=== PATIENT | male | born 1940 | race Two or more races ===

== ENCOUNTER 2016-07-26 10:28 | Inpatient (IN) | payer MEDICARE ==
[2016-07-26] MEDS ORDERED: ASPIRIN 81 MG CHEW PO STA (10:35)
[2016-07-26] MEDS ORDERED: HEPARIN SODIUM,PORCINE 5,000 UNIT/ML 1 ML VIAL IV STA (10:35)
[2016-07-26] MEDS ORDERED: NITROGLYCERIN SL TABS 0.4 MG TAB SUBLINGUAL STA (10:35)
--- NOTE | 2016-07-26 10:40 | ED ---
General Adult HPI - General Stated complaint: stemi Time Seen by Provider: 07/26/16 10:31 Source: patient, EMS, RN notes reviewed Mode of arrival: EMS Limitations: no limitations - History of Present Illness Initial comments: Patient is a pleasant 75-year-old male presenting to the emergency Department with chest discomfort. Onset was around an hour and a half ago. Patient has discomfort with radiation to his arms. Discomfort feels like pressure. Discomfort is 7/10. Patient did have mild improvement with nitroglycerin. Patient feels somewhat sweaty. No dyspnea. No nausea. No history of similar symptoms previously. Patient did have an TX 7 or 8 years ago followed by CABG. Patient was recently in the hospital for bronchitis. - Related Data Allergies Allergy/AdvReac Type Severity Reaction Status Date / Time No Known Allergies Allergy Verified 07/26/16 10:53 Review of Systems ROS Statement: Those systems with pertinent positive or pertinent negative responses have been documented in the HPI. ROS Other: All systems not noted in ROS Statement are negative. Constitutional: Denies: fever Eyes: Denies: eye pain ENT: Denies: ear pain Respiratory: Denies: cough, dyspnea Cardiovascular: Reports: chest pain Endocrine: Denies: fatigue Gastrointestinal: Denies: nausea Genitourinary: Denies: dysuria Musculoskeletal: Denies: back pain Skin: Denies: rash Neurological: Denies: weakness Past Medical History Past Medical History: Coronary Artery Disease (CAD), Hyperlipidemia, Hypertension Past Surgical History: Coronary Bypass/CABG Smoking Status: Never smoker Past Alcohol Use History: Occasional Past Drug Use History: None Reported General Exam Limitations: no limitations General appearance: alert, other (Patient appears mildly uncomfortable) Head exam: Present: atraumatic, normocephalic Eye exam: Present: normal appearance, PERRL ENT exam: Present: normal oropharynx Neck exam: Present: normal inspection Respiratory exam: Present: normal lung sounds bilaterally. Absent: chest wall tenderness Cardiovascular Exam: Present: regular rate, normal rhythm Expanded Peripheral pulses: 2+: Radial (R), Radial (L), Dorsalis Pedis (R), Dorsalis Pedis (L) GI/Abdominal exam: Present: soft. Absent: tenderness Extremities exam: Present: normal inspection. Absent: pedal edema, calf tenderness Neurological exam: Present: alert Psychiatric exam: Present: normal affect, normal mood Skin exam: Absent: rash Course Vital Signs 07/26/16 07/26/16 07/26/16 10:29 10:33 10:35 Temperature 97.8 F Pulse Rate 74 76 74 Respiratory 18 Rate Blood Pressure 151/71 152/73 155/70 O2 Sat by Pulse 96 Oximetry 07/26/16 10:40 Temperature Pulse Rate 76 Respiratory 18 Rate Blood Pressure 146/91 O2 Sat by Pulse 98 Oximetry - Reevaluation(s) Reevaluation #1: 07/26/16 10:38 After [place] was notified prior to patient arrival secondary to EKG on EMS transmission. He did show up minutes after patient arrival and is currently evaluating patient and will take him to the [facility]. 07/26/16 10:41 Right-sided EKG shows no ST elevation in lead V4. Normal sinus rhythm at 74. OR 192. QRS 92. QT 394. QTC 437. Normal axis. Normal QRS. Inferior ST elevation. ST depression leads V1 and V2. 07/26/16 10:45 Patient has gone to [facility]. 07/26/16 10:47 Dr. Yates has been paged for admission. 07/26/16 10:56 07/26/16 11:13 Case was discussed with Dr. Yates, who will admit for hospital call. EKG Findings - EKG Comments: EKG Findings:: EKG shows normal sinus rhythm at 75. Normal intervals. Normal axis. Normal QRS. Significant ST elevation inferior and lateral leads. There is some ST depression in the septal leads. Medical Decision Making - Lab Data Result diagrams: 07/26/16 10:41 Lab Results 07/26/16 Range/Units 10:41 WBC 14.2 H (3.8-10.6) k/uL RBC 4.27 L (4.30-5.90) m/uL Hgb 13.6 (13.0-17.5) gm/dL Hct 42.3 (39.0-53.0) % MCV 99.1 (80.0-100.0) fL MCH 31.8 (25.0-35.0) pg MCHC 32.1 (31.0-37.0) g/dL RDW 13.2 (11.5-15.5) % Plt Count 254 (150-450) k/uL Neutrophils % 71 % Lymphocytes % 20 % Monocytes % 7 % Eosinophils % 1 % Basophils % 0 % Neutrophils # 10.1 H (1.3-7.7) k/uL Lymphocytes # 2.9 (1.0-4.8) k/uL Monocytes # 1.0 (0-1.0) k/uL Eosinophils # 0.1 (0-0.7) k/uL Basophils # 0.0 (0-0.2) k/uL - Radiology Data Interpreted by me: Chest x-ray shows borderline cardiomegaly. There is sternotomy wires and postsurgical changes. Mild interstitial prominence. Disposition Clinical Impression: STEMI (ST elevation myocardial infarction) Disposition: ADMITTED IP TO THIS HOSP Condition: Critical Referrals: None,Stated [Primary Care Provider] - 1-2 days
[2016-07-26] MEDS ORDERED: SODIUM CHLORIDE 0.9% 1,000 ML IV ONE (10:45)
[2016-07-26] MEDS ORDERED: LIDOCAINE 2% INJ 20 MG/ML (20 ML MDV) ONE (10:51)
--- NOTE | 2016-07-26 10:52 | XR ---
EXAMINATION TYPE: XR chest 1V portable DATE OF EXAM: 07/26/2016 10:45 AM COMPARISON: NONE HISTORY: Chest pain TECHNIQUE: Single frontal view of the chest is obtained. FINDINGS: Patient is post median sternotomy and slightly rotated, there are overlying cardiac leads. The heart is enlarged. There is no evident pneumothorax. Difficult to exclude basilar density. Pulmo nary vascularity and enriqueta within normal limits. IMPRESSION: There may be some basilar atelectasis, difficult to exclude a small effusion or airspace disease, follow-up as indicated. Cardiomegaly. Postop changes.
[2016-07-26 10:57] LABS: Basophils % (A) 0 %; CH 31.9; CHCM 32.3; Eosinophils # (A) 0.1 k/uL (0-0.7); Eosinophils % (A) 1 %; HCT 42.3 % (39.0-53.0); HDW 2.37; HGB 13.6 gm/dL (13.0-17.5); Luc # (Auto) 0.14; Luc % (Auto) 1; Lymphocytes # (A) 2.9 k/uL (1.0-4.8); Lymphocytes % (A) 20 %; MCH 31.8 pg (25.0-35.0); MCHC 32.1 g/dL (31.0-37.0); MCV 99.1 fL (80.0-100.0); Mean Platelet Volume 6.9; Monocytes % (A) 7 %; Neutrophils # (A) 10.1 k/uL (1.3-7.7); Neutrophils % (A) 71 %; RBC 4.27 m/uL (4.30-5.90); RDW 13.2 % (11.5-15.5); WBC 14.2 k/uL (3.8-10.6); WBC (Perox) 14.86
[2016-07-26] MEDS: MIDAZOLAM 2 MG/2 ML VIAL IV ONE ×2 (10:57→11:00)
[2016-07-26] MEDS ORDERED: MIDAZOLAM 2 MG/2 ML VIAL ONE (10:58)
[2016-07-26] MEDS ORDERED: diphenhydrAMINE 50 MG/ML 1 ML VIAL ONE (10:58)
[2016-07-26] MEDS ORDERED: LIDOCAINE 2% INJ 20 MG/ML SQ ONE (10:58)
[2016-07-26] MEDS ORDERED: diphenhydrAMINE 50 MG/ML 1 ML VIAL IVP ONE (10:58)
[2016-07-26] MEDS: HYDROmorphone 2 MG/ML 1 ML SYRINGE IV ONE ×2 (10:59→11:36)
[2016-07-26] MEDS ORDERED: SODIUM CHLORIDE 0.9% 500 ML IV ONE (11:00)
[2016-07-26] MEDS ORDERED: HYDROmorphone 2 MG/ML 1 ML SYRINGE ONE (11:02)
[2016-07-26] MEDS ORDERED: ATORVASTATIN 80 MG TAB PO STA (11:06)
[2016-07-26] MEDS: NITROGLYCERIN SL TABS 0.4 MG TAB SUBLINGUAL STA ×3 (11:08→11:09)
[2016-07-26 11:10] LABS: Anion Gap 12 mmol/L; Calcium 8.9 mg/dL (8.4-10.2); Carbon Dioxide 23 mmol/L (22-30); Chloride 103 mmol/L (98-107); Glucose 119 mg/dL (74-99); Non-African American GFR(MDRD) >60 (>60 ml/min/1.73 sqM); Sodium 138 mmol/L (137-145); Total Bilirubin 0.8 mg/dL (0.2-1.3); Total Protein 6.5 g/dL (6.3-8.2)
[2016-07-26 11:14] LABS: ALT 41 U/L (21-72); AST 37 U/L (17-59); Alkaline Phosphatase 76 U/L (38-126); Blood Urea Nitrogen 26 mg/dL (9-20)
[2016-07-26] MEDS ORDERED: BIVALIRUDIN BOLUS 250 MG/50 ML IV ONE (11:15)
[2016-07-26] MEDS ORDERED: BIVALIRUDIN 250 MG in SODIUM CHLORIDE 0.9% 50 ML IV ONE (11:16)
[2016-07-26] MEDS ORDERED: CLOPIDOGREL 75 MG TAB ONE ×2 (11:18)
[2016-07-26] MEDS ORDERED: CLOPIDOGREL 75 MG TAB PO ONE (11:22)
[2016-07-26] MEDS ORDERED: NITROGLYCERIN 1000MCG/10ML SYRINGE INTRACORON ONE (11:23)
[2016-07-26 11:35] LABS: Partial Thromboplastin Time 26.9 sec (22.0-30.0); Prothrombin Time 10.1 sec (9.0-12.0)
[2016-07-26] MEDS ORDERED: IOHEXOL 350 MG/ML 100 ML BOTTLE INJ ONE (11:36)
[2016-07-26 11:40] LABS: Creatine Kinase MB 5.2 ng/mL (0.0-2.4); Troponin I 0.082 ng/mL (0.000-0.034)
[2016-07-26] MEDS ORDERED: RX INFO: IV CONTRAST WAS GIVEN 1 EACH MISC MISCELLANE PRN (11:47)
[2016-07-26] MEDS ORDERED: ATROPINE SULFATE 0.1 MG/ML 10ML SYRINGE IV PRN (11:47)
[2016-07-26] MEDS ORDERED: MAG HYDROX/AL HYDROX/SIMETH 30 ML CUP PO PRN (11:47)
[2016-07-26] MEDS ORDERED: NITROGLYCERIN SL TABS 0.4 MG TAB SUBLINGUAL PRN (11:47)
[2016-07-26] MEDS ORDERED: ZOLPIDEM 5 MG TAB PO PRN (11:47)
[2016-07-26] MEDS ORDERED: SODIUM CHLORIDE 0.9% 1,000 ML IV SCH (12:00)
[2016-07-26 12:39] LABS: Glucose,Whole Blood 124 mg/dL (75-99)
[2016-07-26] MEDS: FUROSEMIDE 10 MG/ML 4 ML VIAL IV SCH ×2 (14:28→21:44)
--- NOTE | 2016-07-26 15:00 | ECHOF ---
Referral Reason:stemi MEASUREMENTS -------- HEIGHT: 177.8 cm WEIGHT: 79.4 kg BP: 146/91 RVIDd: 3.2 cm (< 3.3) IVSd: 1.4 cm (0.6 - 1.1) LVIDd: 3.5 cm (3.9 - 5.3) LVPWd: 1.4 cm (0.6 - 1.1) IVSs: 1.9 cm LVIDs: 2.7 cm LVPWs: 1.8 cm LA Diam: 3.5 cm (2.7 - 3.8) LAESV Index (A-L): 21.07 ml/m Ao Diam: 3.7 cm (2.0 - 3.7) AV Cusp: 2.0 cm (1.5 - 2.6) MV EXCURSION: 8.503 mm (> 18.000) MV EF SLOPE: 72 mm/s (70 - 150) EPSS: 0.4 cm MV E Yt: 1.15 m/s MV DecT: 115 ms MV A Ty: 1.29 m/s MV E/A Ratio: 0.89 RAP: 5.00 mmHg RVSP: 25.42 mmHg FINDINGS -------- Sinus rhythm. This was a technically adequate study. The left ventricular size is normal. There is moderate concentric left ventricular hypertrophy. Overall left ventricular systolic function is low-normal with, an EF between 50 - 55 %. Basal inferior LV wall motion is hypokinetic. The right ventricle is normal in size. Normal LA size by volume 22+/-6 ml/m2. The right atrium is normal in size. There is mild aortic valve sclerosis. Mild mitral annular calcification present. There is trace to mild mitral regurgitation. Mild tricuspid regurgitation present. Right ventricular systolic pressure is normal at < 35 mmHg. The pulmonic valve was not well visualized. The aortic root is dilated measuring 3.7cm. There is no pericardial effusion. CONCLUSIONS -------- 1. Sinus rhythm. 2. There is mild aortic valve sclerosis. 3. Mild mitral annular calcification present. 4. There is trace to mild mitral regurgitation. 5. Mild tricuspid regurgitation present. 6. Right ventricular systolic pressure is normal at < 35 mmHg. 7. The pulmonic valve was not well visualized. 8. The aortic root is dilated measuring 3.7cm. 9. There is no pericardial effusion. 10. This was a technically adequate study. 11. The left ventricular size is normal. 12. There is moderate concentric left ventricular hypertrophy. 13. Overall left ventricular systolic function is low-normal with, an EF between 50 - 55 %. 14. Basal inferior LV wall motion is hypokinetic. 15. The right ventricle is normal in size. 16. Normal LA size by volume 22+/-6 ml/m2. 17. The right atrium is normal in size. [employer] DEVELOPER: Maricruz Chang RDCS
[2016-07-26 15:37] VITALS: BMI 25.0
--- NOTE | 2016-07-26 19:40 | HP ---
DATE OF ADMISSION: 07/26/2016 REASON FOR ADMISSION: Chest pain. HISTORY OF PRESENT ILLNESS: This is a 75-year-old gentleman with a past medical history of CAD, status post CABG; thereafter underwent another PCI. This was all at another facility. Comes in the hospital with acute onset chest pain. Patient presented to the emergency room around half hour after the onset of symptoms, described as, pressure-like feeling, mid sternal region, severe. In the emergency room, EKG was done immediately which showed ST elevation, in 2, 3, aVF ST depression and concurrent leads in V3, V4, V5 And V6. Patient was also noted to have increased troponin. Patient was emergently taken to the cardiac catheterization suite with standard protocol. Patient underwent an emergent cath, was noted to have what appears to be a blockage of the graft. Patient underwent successful PTCA and PCI. Patient was seen postoperatively in the Intensive Care Unit. Appears to be in normal sinus rhythm. Denies having any chest pain. A stat echocardiogram showed basal hypokinesis. Past medical history includes: 1. CAD. 2. Essential hypertension. 3. Dyslipidemia. 4. Gastroesophageal reflux disease. PAST SURGICAL HISTORY: CABG and cardiac catheterization in the past. SOCIAL HISTORY: The patient is a lifelong nonsmoker. Denies alcohol or illicit drug use. FAMILY HISTORY: Does state to have some heart disease in the family. Home medications: None were reported. PHYSICAL EXAM: Vital signs include temperature 98.8, heart rate 79, respiratory rate 17, blood pressure is 127/71, saturating 98% on 4 liters of supplemental oxygen. GENERAL APPEARANCE: Alert, oriented x3 in no distress. HEAD: Atraumatic, normocephalic. Pupils are equal, round, and react to light and accommodation. Neck is supple. No JVD. HEART: S1, S2 heard, regular rate and rhythm. No murmurs appreciated. LUNGS: Does appear to have a cough. Rhonchi appreciated, however, transmitted from the hypopharynx. On clearing, patient appears to have good air movement. ABDOMEN: Soft, nontender, no organomegaly. LOWER EXTREMITIES: No significant edema noted. Right groin is examined. Appropriately tender to palpation. Distal pulses are appreciated. NEURO: No focal motor or sensory deficits noted. LABORATORY DATA: Hemoglobin is 13.6, hematocrit 14.2. Platelets of 254. Sodium 138, potassium 4, chloride 103, bicarb 23. BUN 26, creatinine 0.91, troponin 0.82. ASSESSMENT AND PLAN: 1. Non-ST elevation myocardial infarction. 2. Acute bronchitis. 3. History of coronary artery disease status post coronary artery bypass graft in the past. 4. Dyslipidemia. 5. Acute hypoxic respiratory failure secondary to bronchitis and a lifelong nonsmoker. PLAN: We will start the patient on doxycycline. Patient is on dual antiplatelet therapy with aspirin and Plavix. Lisinopril 10 mg and metoprolol 25 mg p.o. b.i.d. were appropriately started by the collection coordinator. Patient will be monitored in the ICU for at least 24 hours for any dysrhythmias. Thereafter will be managed according to standard protocol in the hospital for at least 48 hours or greater. We will repeat a chest x-ray. DVT prophylaxis. There is some concern for an elevated LVEDP. Hence patient was started on diuretics. Will follow the patient.
[2016-07-26] MEDS ORDERED: ACETAMINOPHEN TAB 500 MG TAB PO PRN (20:14)
--- NOTE | 2016-07-26 20:56 | CC ---
DATE OF SERVICE: July 26, 2016. Performing physician: Felipe Avila, [employer] spanish teacher. PROCEDURE PERFORMED: 1. Selective left and right coronary angiogram. 2. SVG angiogram x2. 3. Left internal mammary artery angiogram. 4. Successful stenting of the mid right coronary artery using 3.25 x 18 mm Xience JOAQUIM which was postdilated using 3.75 mm NC balloon with a good angiographic results. INDICATION: This is a pleasant 75-year-old gentleman who presented to the hospital with chest discomfort and was diagnosed with acute inferior ST elevation myocardial infarction. He underwent a heart catheterization and was found to have critical disease involving the mid RCA which is unprotected. He underwent successful stenting of the RCA. Approach: Right common femoral artery. COMPLICATIONS: None. Level of sedation: Moderate sedation. Length of sedation: 45 minutes. PROCEDURE DESCRIPTION: After obtaining an informed consent, the patient was brought to the cardiac director of cath lab. Right common femoral artery was cannulated using micropuncture technique. Micropuncture wire passed easily and then I placed a 6 [place] sheath in the right common femoral artery. Subsequently I did selective right and left coronary angiogram using JL4 and JR4 catheters. After that, I did SVG angiogram x2 where I did SVG to OM and SVG to diagonal using the JR4 catheter. Left internal mammary artery angiogram was performed using also JR4 catheter. After that, I did intervene on the RCA. Please see separate paragraph for that. SELECTIVE CORONARY ANGIOGRAM: 1. The left main is a large-caliber vessel is mild disease distally. It bifurcates into the left circumflex and left anterior descending artery. 2. The left circumflex is a large-caliber vessel and it is a nondominant vessel. The proximal circumflex appeared to have mild disease only. The mid left circumflex appeared to become a small to medium caliber vessel and appeared to have mild disease only. The left circumflex gives rise into the first obtuse marginal branch, which appeared to have severe disease in the proximal portion, which is protected by the BOSS. 3. Left anterior descending artery: The proximal LAD appeared to have mild disease only and gives rises into 2 small diagonal branches. The mid LAD appeared to have a lesion in the range of 70% to 80%. Competitive flow from the BOSS was seen in the mid LAD. 4. Right coronary artery is a large-caliber vessel and it is dominant vessel. The proximal RCA appeared to have mild disease only. The mid RCA appeared to have critical disease in the range of 90% to 95%. The RCA distally appeared to have mild disease only and bifurcates into PDA and PLV branches; both have mild to moderate diffuse disease only. CORONARY BYPASS ANGIOGRAM: 1. The SVG to diagonal is patent. 2. The SVG to OM is patent. 3. The LAD is patent. PCI of the RCA: Anticoagulation was initiated using Angiomax. Subsequently, I took JR4 guide and the RCA was engaged. A Whisper wire was used to wire the RCA. Subsequently, I did PTCA using 20 x 12 mm balloon. Then I deployed a 3.25 x 15 x 18 mm Xience JOAQUIM, where the stent was positioned under fluoroscopy guidance and deployed under 16 atmospheres for 20 seconds. I postdilated that stent using a 3.75 mm noncompliant balloon. The following angiogram showed good angiographic result without complication and without dissection. CONCLUSION: 1. Severe triple-vessel coronary artery disease and status post coronary artery bypass grafting. 2. Patent BOSS to LAD. 3. Patent SVG to what. 4. Patent SVG to obtuse marginal branch. 5. Critical disease involving the mid unprotected right coronary artery. 6. Successful stenting of the mid RCA using 3.25 mm Xience JOAQUIM with a good angiographic result. POSTPROCEDURE MANAGEMENT: 1. Dual antiplatelet therapy. 2. Coronary risk factor modifications. 3. Follow up with the patient.
--- NOTE | 2016-07-26 21:23 | XR ---
EXAMINATION TYPE: XR chest 1V portable DATE OF EXAM: 07/26/2016 8:42 PM COMPARISON: Prior chest x-ray 25 November 2016 HISTORY: Fever TECHNIQUE: Single frontal view of the chest is obtained. FINDINGS: Patient is rotated. Heart is enlarged, patient is post median sternotomy. There is bluntin g of the right costophrenic angle. No evident pneumothorax. Pulmonary vascularity and enriqueta within nor mal limits. IMPRESSION: Findings suggest the right pleural effusion and associated atelectasis. Cardiomegaly. Fo llow-up PA and lateral chest x-ray is recommended.
[2016-07-26] MEDS: DOXYCYCLINE 50 MG CAP PO SCH (21:44)
[2016-07-26] MEDS: METOPROLOL TARTRATE 25 MG TAB PO SCH (21:44)
[2016-07-26] MEDS: ATORVASTATIN 20 MG TAB PO SCH (21:44)
[2016-07-27 04:58] LABS: Basophils % (A) 0 %; CH 32.1; CHCM 33.4; Eosinophils % (A) 0 %; HCT 38.8 % (39.0-53.0); HDW 2.39; HGB 12.9 gm/dL (13.0-17.5); Luc # (Auto) 0.15; Luc % (Auto) 1; Lymphocytes % (A) 7 %; MCH 32.1 pg (25.0-35.0); MCHC 33.2 g/dL (31.0-37.0); MCV 96.4 fL (80.0-100.0); Mean Platelet Volume 6.6; Monocytes # (A) 0.7 k/uL (0-1.0); Monocytes % (A) 5 %; Neutrophils # (A) 12.3 k/uL (1.3-7.7); Neutrophils % (A) 87 %; RBC 4.02 m/uL (4.30-5.90); RDW 12.8 % (11.5-15.5); WBC 14.3 k/uL (3.8-10.6); WBC (Perox) 15.32
[2016-07-27 05:07] LABS: ALT 70 U/L (21-72); AST 286 U/L (17-59); Alkaline Phosphatase 65 U/L (38-126); Anion Gap 10 mmol/L; Blood Urea Nitrogen 24 mg/dL (9-20); Calcium 8.6 mg/dL (8.4-10.2); Carbon Dioxide 30 mmol/L (22-30); Chloride 98 mmol/L (98-107); Glucose 131 mg/dL (74-99); Non-African American GFR(MDRD) >60 (>60 ml/min/1.73 sqM); Potassium 4.2 mmol/L (3.5-5.1); Sodium 138 mmol/L (137-145); Total Bilirubin 0.9 mg/dL (0.2-1.3); Total Protein 5.8 g/dL (6.3-8.2)
[2016-07-27] MEDS: DOXYCYCLINE 50 MG CAP PO SCH ×2 (08:16→20:49)
[2016-07-27] MEDS: FUROSEMIDE 10 MG/ML 4 ML VIAL IV SCH (08:17)
[2016-07-27] MEDS: LISINOPRIL 10 MG TAB PO SCH (08:17)
[2016-07-27] MEDS: METOPROLOL TARTRATE 25 MG TAB PO SCH (08:17)
[2016-07-27] MEDS: ASPIRIN 325 MG TAB PO SCH (08:18)
--- NOTE | 2016-07-27 08:33 | XR ---
EXAMINATION TYPE: XR chest 1V portable DATE OF EXAM: 07/27/2016 6:03 AM COMPARISON: Prior chest x-ray dated 26 July 2016 HISTORY: Difficulty in breathing TECHNIQUE: Single frontal view of the chest is obtained. FINDINGS: There are overlying cardiac leads. Heart remains enlarged. No evident pneumothorax. There may be some improved aeration at the lung bases. Pulmonary vascularity and enriqueta are stable. Patient i s post median sternotomy. IMPRESSION: There may be improvement in some aeration at the lung bases. Right hemidiaphragm is elev ated. Follow-up PA and lateral chest x-ray when stable.
[2016-07-27] MEDS: CLOPIDOGREL 75 MG TAB PO SCH (11:35)
[2016-07-27 12:03] LABS: Glucose,Whole Blood 123 mg/dL (75-99)
--- NOTE | 2016-07-27 12:14 | P.CRDCN ---
History of Present Illness Chief complaint: st elevation mi History of present illness: Impression 75-year-old male patient presenting with chest discomfort started about 1 after 2 hours prior to admission. The chest discomfort radiates down his left arm no radiation through to the back, severity 7 out of 10 mild improvement with nitroglycerin Past history of coronary artery disease triple-vessel followed by coronary artery bypass grafting old [place] Blood pressure 150s systolic, heart rate in the 70s, systolic murmur at the apex breath sounds reduced bilaterally no rhonchi no crackles no acute respiratory distress Recently diagnosed with bronchitis at [facility] and discharged On atorvastatin and aspirin Does not have a local health workers Medications reviewed ALLERGIES reviewed Review of systems: No fever chills or rigors, he complains of cough and expectoration, no nausea, vomiting or diarrhea, no hematuria, dysuria, no musculoskeletal complaints, no strokes or seizures, no skin lesions. On examination his blood pressure was in the 150s systolic Breath sounds are reduced bilaterally Heart sounds are soft no murmurs no gallops Extremities warm no edema No JVD Skin felt warm Impression Acute inferior wall UT with posterior extension Known coronary artery disease Recently diagnosed with bronchitis Plan IV heparin 80 mg of atorvastatin Aspirin Proceed to the Program Coordinator Executive Education Discussed with Dr. Solomon and Intervention as appropriate, medical management Past Medical History Past Medical History: Coronary Artery Disease (CAD), Hyperlipidemia, Hypertension Past Surgical History: Coronary Bypass/CABG Smoking Status: Never smoker Past Alcohol Use History: Occasional Past Drug Use History: None Reported - Past Family History Father Additional Family Medical History / Comment(s): Concussion Mother Family Medical History: Myocardial Infarction ([place]) Medications and Allergies Home Medications Medication Instructions Recorded Confirmed Type No Known Home Medications [No 07/26/16 07/26/16 History Known Home Medications] Allergies Allergy/AdvReac Type Severity Reaction Status Date / Time No Known Allergies Allergy Verified 07/26/16 14:26 Results 07/27/16 04:21 07/27/16 04:21
--- NOTE | 2016-07-27 12:16 | P.PN ---
Subjective Patient is stable but he seems to be coughing a lot more and his lungs definitely sound more rhonchorous than when I saw him in the emergency room. He denies any chest discomfort. His blood pressures in the mid 90s. No chest discomfort dizziness or lightheadedness On examination his blood pressure is 94/57 mmHg respirations 20 pulse rate 80 afebrile 98F Breath sounds are reduced bilaterally with bilateral rhonchi Heart sounds soft no murmurs no gallops Abdomen is soft nontender No lower extremity edema Impression Acute inferior posterior MT status post stenting Known coronary artery disease status post coronary artery bypass grafting Plan Treatment of bronchitis Continue antiplatelet agents statins and beta blockers Lower the dose of beta blockers Hold MAHNAZ inhibitor Objective - Vital Signs Vital signs: Vital Signs Temp 98.0 F 07/27/16 11:00 Pulse 80 07/27/16 12:00 Resp 25 H 07/27/16 12:00 BP 94/57 07/27/16 12:00 Pulse Ox 96 07/27/16 12:00 Intake & Output 07/26/16 07/27/16 07/27/16 18:59 06:59 18:59 Intake Total 700 495 100 Output Total 2300 2625 300 Balance -1600 -2130 -200 Weight 79.3 kg 73.1 kg Intake: IV 200 Intake, IV Titration 500 200 100 Amount Sodium Chloride 0.9% 1, 500 200 100 000 ml @ 100 mls/hr IV . Q10H PETRA Rx#:[id number] Oral 295 Output: Urine 2300 2625 300 Other: Voiding Method Urinal Urinal Urinal # Voids 0 # Bowel Movements 0 - Labs CBC & Chem 7: 07/27/16 04:21 07/27/16 04:21 Labs: Abnormal Lab Results - Last 24 Hours (Table) 07/26/16 07/27/16 07/27/16 Range/Units 12:38 04:21 04:21 WBC 14.3 H (3.8-10.6) k/uL RBC 4.02 L (4.30-5.90) m/uL Hgb 12.9 L (13.0-17.5) gm/dL Hct 38.8 L (39.0-53.0) % Neutrophils # 12.3 H (1.3-7.7) k/uL BUN 24 H (9-20) mg/dL Glucose 131 H (74-99) mg/dL POC Glucose (mg/dL) 124 H (75-99) mg/dL AST 286 H (17-59) U/L Total Protein 5.8 L (6.3-8.2) g/dL Albumin 3.1 L (3.5-5.0) g/dL 07/27/16 Range/Units 12:02 WBC (3.8-10.6) k/uL RBC (4.30-5.90) m/uL Hgb (13.0-17.5) gm/dL Hct (39.0-53.0) % Neutrophils # (1.3-7.7) k/uL BUN (9-20) mg/dL Glucose (74-99) mg/dL POC Glucose (mg/dL) 123 H (75-99) mg/dL AST (17-59) U/L Total Protein (6.3-8.2) g/dL Albumin (3.5-5.0) g/dL
[2016-07-27] MEDS: HEPARIN SODIUM,PORCINE 5,000 UNIT/ML 1 ML VIAL SQ SCH (16:29)
[2016-07-27] MEDS ORDERED: IV VANCOMYCIN PER PHARMACY 1 EACH MISC MISCELLANE PRN (19:04)
--- NOTE | 2016-07-27 20:08 | PN ---
This is a 75-year-old gentleman that is admitted to the hospital with a STEMI, underwent a PCI to the RCA. Patient does have a history of CAD, status post CABG 7 years ago. Patient was also undergoing treatment for bronchitis previously. Today the patient was seen in the intensive care unit. No abnormalities were noted. He continues to be on 2 liters supplemental oxygen and states that his cough is improved. Chest x-ray this a.m. appears to show improved aeration; however, elevation of the right hemidiaphragm. Denies having any headaches, chest pain, difficulty in breathing, nausea, vomiting, diarrhea at this time. PHYSICAL EXAM: VITALS: Temperature is 98, heart rate 80, respiratory rate is 20 to 25, blood pressure 94/57, saturating 96% on 2 liters. GENERALLY: Patient appears to be alert, oriented x3. HEENT: The pupils are equal and reactive to light and accommodation. HEART: S1, S2 present. No murmur appreciated. LUNGS: Good air entry. No wheezing or rhonchi noted. ABDOMINAL EXAM: Soft, nontender, no organomegaly appreciated. GENITOURINARY: No Forrest in place. EXTREMITIES: Pulses can be palpated distally. Denies any tenderness on gross palpation. SKIN: On a gross skin exam does not appear to have any purpura or any skin rashes that were noted. NEUROLOGICALLY: Grossly cranial nerves 2-12 intact. No motor or sensory deficits noted. LABORATORY DATA: Hemoglobin is 12.9, hematocrit 30.8, white count of 14.3, platelets of 271. Sodium 138, potassium 4.2, chloride 98, bicarb 30, BUN is 24, creatinine of 1. ASSESSMENT AND PLAN: 1. ST elevation myocardial infarction. 2. Acute bronchitis. 3. Dyslipidemia. 4. History of hypertension. 5. Elevated right hemidiaphragm likely due to the previous bypass surgery. PLAN: Continue treatment per STEMI protocol, telemetry monitoring. Blood pressures are stable. Breathing appears to be improving. Continue close monitoring. Encourage ambulation. Titrate down O2. We will add DVT prophylaxis with subcu heparin 5000 units q.8 hours. Likely need another 24 to 48 hours in the hospital.
[2016-07-27] MEDS: VANCOMYCIN 1,250 MG in SODIUM CHLORIDE 0.9% 250 ML IVPB SCH (20:48)
[2016-07-27] MEDS: ATORVASTATIN 20 MG TAB PO SCH (20:49)
[2016-07-27] MEDS: METOPROLOL TARTRATE 12.5 MG TAB PO SCH (22:07)
[2016-07-28] MEDS: HEPARIN SODIUM,PORCINE 5,000 UNIT/ML 1 ML VIAL SQ SCH ×2 (07:04→08:31)
[2016-07-28] MEDS: ASPIRIN 325 MG TAB PO SCH (08:31)
[2016-07-28] MEDS: VANCOMYCIN 1,250 MG in SODIUM CHLORIDE 0.9% 250 ML IVPB SCH (08:31)
[2016-07-28] MEDS: CLOPIDOGREL 75 MG TAB PO SCH (08:31)
[2016-07-28] MEDS: DOXYCYCLINE 50 MG CAP PO SCH (08:31)
[2016-07-28] MEDS: LISINOPRIL 10 MG TAB PO SCH (08:32)
[2016-07-28] MEDS: METOPROLOL TARTRATE 12.5 MG TAB PO SCH (08:32)
[2016-07-28 10:00] VITALS: RESP 18
[2016-07-28 12:35] VITALS: BP 114/72; PULSE 78; TEMP 97.4
--- NOTE | 2016-07-28 15:13 | P.PN ---
Progress Note - Text Patient signed out AGAINST MEDICAL ADVICE today, he was not seen or evaluated by cardiology today. 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 DNP note has been reviewed, I agree with a documented findings and plan of care. Patient was seen and examined.
--- NOTE | 2016-07-28 17:26 | P.DS ---
Providers Date of admission: 07/26/16 10:46 Attending physician: Tracy Yates Consults: 07/26/16 11:47 Consult Physician Routine Consulting Provider: [facility] Consult Reason/Comments: Post Interventional patient Do you want consulting provider notified?: Already Contacted 07/27/16 18:53 Consult Physician Stat Consulting Provider: Celeste Joseph Reason/Comments: Positive blood culture Do you want consulting provider notified?: Yes Primary care physician: Stated None Hospital Course: pt left against medical advise. Patient Condition at Discharge: Critical Plan - Discharge Summary Discharge Medication List No Known Home Medications [No Known Home Medications] 07/26/16 [History] Follow up Appointment(s)/Referral(s): Mauro Lundberg MD [STAFF PHYSICIAN] - 1 Week (F/u with Shanita/leeanne 1 week ) None,Stated [Primary Care Provider] - 1-2 days Discharge Disposition: Left Against Medical Advice
--- NOTE | 2016-07-28 19:20 | CONS ---
DATE OF CONSULTATION: 07/28/2016 REASON FOR CONSULTATION: Bacteremia. HISTORY OF PRESENT ILLNESS: The patient is a 75-year-old male who presented to the ER on 07/26/2016 with the chief complaints of chest discomfort that had been going on for about an hour and a half before he presented to hospital. Did have some associated shortness of breath and cough. Patient subsequently has been evaluated by Cardiology. The patient did have a cardiac catheterization done by Dr. Solomon the same day. He did have some stenting of the mid right coronary artery. The patient did have blood cultures obtained which came back positive for Gram-positive cocci yesterday. We did ask for repeat blood cultures, and the patient was started on vancomycin. I did evaluate the patient this morning, when the patient remained to be afebrile; has been breathing comfortably. Patient denies having any chest pain. Some shortness of breath. Occasional cough. No abdominal pain. No nausea or vomiting or any diarrhea. The patient denies any skin sores. REVIEW OF SYSTEMS: CONSTITUTIONAL: Positive for weakness but no fever has been recorded. EYES: No complaint. ENT: No complaint. RESPIRATORY: As per HPI. CARDIOVASCULAR: As per HPI. GENITOURINARY: No complaint. GASTROINTESTINAL: No complaint. MUSCULOSKELETAL: No complaint. INTEGUMENTARY: No complaint. PSYCHOLOGIC: No complaint. ENDOCRINE: No complaint. NEUROLOGIC: No complaint. Past medical history is significant for: 1. Coronary artery disease. 2. Hypertension. 3. Hyperlipidemia. PAST SURGICAL HISTORY: Coronary artery bypass grafting. SOCIAL HISTORY: No smoking, drinking or drug use. FAMILY HISTORY: No pertinent findings were noted. ALLERGIES: NO KNOWN DRUG ALLERGIES. Medications currently include: 1. Tylenol. 2. Maalox. 3. Aspirin. 4. Lipitor. 5. Plavix. 6. Vancomycin, Pharmacy to dose. On examination, blood pressure is 114/72 with a pulse of 78, temperature 97.4. He is 97% on room air. General description is an elderly male lying in bed in no distress. No tachypnea or accessory muscle of respiration use. HEENT examination shows no pallor or scleral icterus. Oral mucous membrane dry. NECK: Trachea is central. No thyromegaly. LUNGS: Unlabored breathing. Some coarse breath sounds at the base. HEART: S1, S2. Regular rate and rhythm. ABDOMEN: Soft. No tenderness. EXTREMITIES: No edema of the feet. LABS: Hemoglobin is 12.9 with a white count of 14.3, BUN of 24, creatinine 1.0. Blood cultures now with coagulase-negative negative staph. DIAGNOSTIC IMPRESSION AND PLAN: Patient admitted to hospital with chest pain; has been diagnosed with acute myocardial infarction, status post cardiac catheterization with stenting of his right coronary artery, now with positive blood culture with coagulase-negative staphylococcus in a patient with no clinical disease to go along with it; could be more likely a skin contamination. PLAN: Will wait for the repeat blood culture to finalize. If those are negative vancomycin will be discontinued, patient advised to stay in the hospital while waiting for these cultures to finalize. All his questions and concerns were answered. SHELIA
[2016-07-29] MEDS ORDERED: VANCOMYCIN TROUGH DUE 1 EACH MISC MISCELLANE ONE (07:00)
== END 2016-07-28 13:32 | disposition left against medical advice (07) | DRG 247 ==
LOC: EC 10:28 → 6ICU 10:46 → 6SEL 07-28 02:34
PROVIDERS: ADMIT Internal Medicine; ATTEND Internal Medicine
PROC: B2131ZZ Fluoroscopy of Multiple Coronary Artery Bypass Grafts using Low Osmolar Contrast (ICD-10-PCS; 2016-07-26)
PROC: B2111ZZ Fluoroscopy of Multiple Coronary Arteries using Low Osmolar Contrast (ICD-10-PCS; 2016-07-26)
PROC: 027034Z Dilation of Coronary Artery, One Artery with Drug-eluting Intraluminal Device, Percutaneous Approach (ICD-10-PCS; principal; 2016-07-26 10:45)
PROC: 4A023N7 Measurement of Cardiac Sampling and Pressure, Left Heart, Percutaneous Approach (ICD-10-PCS; 2016-07-26 10:45)
DX: I21.19 ST elevation (STEMI) myocardial infarction involving other coronary artery of inferior wall (principal); R78.81 Bacteremia; I10 Essential (primary) hypertension; J20.9 Acute bronchitis, unspecified; E78.5 Hyperlipidemia, unspecified; I21.29 ST elevation (STEMI) myocardial infarction involving other sites; I25.10 Atherosclerotic heart disease of native coronary artery without angina pectoris; K21.9 Gastro-esophageal reflux disease without esophagitis; R01.1 Cardiac murmur, unspecified; Z95.1 Presence of aortocoronary bypass graft; Z82.49 Family history of ischemic heart disease and other diseases of the circulatory system
CPT/HCPCS: 36415; 71010; 80053; 82550; 82553; 83735; 84484; 85025; 85610; 85730; 87040; 87077; 87086; 87186; 93005; 93306; 96374; 99285

== ENCOUNTER → 2017-08-10 | Outpatient (CLI) | payer MEDICARE, OTHER ==
[2017-08-10 16:41] LABS: ALT 29 U/L (21-72); AST 29 U/L (17-59); Albumin 3.9 g/dL (3.5-5.0); Alkaline Phosphatase 75 U/L (38-126); Anion Gap 9 mmol/L; Blood Urea Nitrogen 13 mg/dL (9-20); Calcium 9.1 mg/dL (8.4-10.2); Carbon Dioxide 29 mmol/L (22-30); Chloride 100 mmol/L (98-107); Cholesterol 175 mg/dL (<200); Glucose 98 mg/dL (74-99); HDL Cholesterol 47 mg/dL (40-60); LDL Cholesterol,Calculated 94 mg/dL (0-99); Potassium 4.1 mmol/L (3.5-5.1); Sodium 138 mmol/L (137-145); Total Bilirubin 0.8 mg/dL (0.2-1.3); Total Protein 6.3 g/dL (6.3-8.2); Triglycerides 170 mg/dL (<150)
== END ==
LOC: LABWHC1 15:23
PROVIDERS: ATTEND Internal Medicine Clinical Cardiac Electrophysiology
DX: I10 Essential (primary) hypertension (principal); I25.10 Atherosclerotic heart disease of native coronary artery without angina pectoris
CPT/HCPCS: 36415; 80053; 80061

== ENCOUNTER → 2018-02-11 | Outpatient (CLI) | payer MEDICARE, OTHER | END | disposition home or self-care (01) | LOC: LABWHC1 09:48 | PROVIDERS: ATTEND Nurse Practitioner Adult Health | DX: E78.2 Mixed hyperlipidemia (principal) | CPT/HCPCS: 36415; 80061; 84450; 84460 ==

== ENCOUNTER → 2019-06-01 | Outpatient (CLI) | payer MEDICARE, OTHER ==
[2019-06-01 16:12] LABS: African American GFR (CKD) 84.4 (60.0-200.0); Anion Gap 6.1 mmol/L (4.00-12.00); Calcium 9.4 mg/dL (8.7-10.3); Carbon Dioxide 29.9 mmol/L (21.6-31.8); Chol/HDL Ratio 2.71; LDL Cholesterol,Calculated 80.2 mg/dL (0.0-131.0); Non-African American GFR(CKD) 72.8 (60.0-200.0); Potassium 4.8 mmol/L (3.5-5.5); VLDL Calculation 18.8 mg/dL (5.00-40.00)
== END | disposition home or self-care (01) ==
LOC: LABWHC1 08:08
PROVIDERS: ATTEND Physician Assistant
DX: I10 Essential (primary) hypertension (principal); E78.5 Hyperlipidemia, unspecified
CPT/HCPCS: 36415; 80048; 80061

== ENCOUNTER → 2019-07-18 | Outpatient (CLI) | payer MEDICARE, OTHER ==
[2019-07-18 15:34] LABS: Chol/HDL Ratio 3.25
== END | disposition home or self-care (01) ==
LOC: LABWHC1 08:47
PROVIDERS: ATTEND Physician Assistant
DX: E78.5 Hyperlipidemia, unspecified (principal)
CPT/HCPCS: 36415; 80061